=== PATIENT | female | born 1955 | race Caucasian/White ===

== ENCOUNTER → 2018-03-27 | Day surgery (SDC) | payer OTHER ==
[~2018-03-27] MED LIST: ALLOPURINOL300 MG PO; ASPIR 8181 MG PO; BIOTIN5 M1 PO; CALTRATE 600 W1 EACH PO; DEXILANT60 MG PO; EFFEXOR XR150 MG PO; FENTANYL CITRATE/PF 100MCG/2 ML INJ ONE; FETZIMA PO; KRILL OIL PO; LOSARTAN POTASS50 MG PO; MAGNESIUM OXID400 MG PO; MIDAZOLAM HCL 2 MG/2 ML VIAL ONE; PANTOPRAZOLE SO40 MG PO; PROPOFOL IV EMULSION 10 MG/ML 50 ML VIAL ONE; SPRYCEL100 MG PO; SUPER B COMPLEX PO; VITAMIN D250000 UNIT PO; VITAMIN D350000 UNIT PO; Z.0.EFFEXOR XR150 MG PO; Z.0.LEVOXYL125 MCG PO; [UNRECOGNIZED DRUG - OTHER] PO; [UNRECOGNIZED DRUG - OTHER] PO
--- OUTSIDE RECORDS SUMMARY | 2018-03-27 12:50 | XMS REPORT | Clinical Summary ---
Author Author [facility] Organization [facility] Address Unknown Phone Unavailable Care Team Providers Care [facility] [employer] Member Name Role Phone Navneet Flood MD PCP Allergies Not on File Current Medications Not on file Active Problems Not on file Encounters Date Type Specialty Care Team Description 05/18/2017 [facility]iology Mitchell Hodge MD Neoplasm of uncertain Encounter behavior of breast, unspecified laterality 05/18/2017 [facility] Mitchell Hodge MD Neoplasm of uncertain Encounter behavior of breast, unspecified laterality 05/18/2017 [facility] Mitchell Hodge MD Neoplasm of uncertain Orders behavior of breast, unspecified laterality 04/27/2017 [facility] Mitchell Hodge MD Neoplasm of uncertain Orders behavior of breast, unspecified laterality (Primary Dx) after 03/26/2017 Social History Tobacco Use Types Packs/Day Years Used Date Never Assessed Sex Assigned at Date Recorded Not on file Last Filed Vital Signs Not on file Plan of Treatment Health Maintenance Due Date Last Done Comments CERVICAL CANCER SCREENING 1975 COLON CANCER SCREENING 2004 SHINGRIX VACCINE (#1) 2004 ZOSTER VACCINE 2014 INFLUENZA VACCINE 12/28/2017 BREAST CANCER SCREENING 05/18/2019 05/18/2017, 05/18/2017, 05/17/2016, Additional history exists Procedures Procedure Name Priority Date/Time Associated Diagnosis Comments US BREAST COMPLETE Routine 05/18/2017 Neoplasm of uncertain Results for this BILATERAL 12:00 PM [employer] behavior of breast, procedure are in the unspecified laterality results section. MAMMO BREAST DIAGNOSTIC Routine 05/18/2017 Neoplasm of uncertain Results for this TOMOSYNTHESIS BILATERAL 11:00 AM [employer] behavior of breast, procedure are in the unspecified laterality results section. after 03/26/2017 Results * US Breast Complete Bilateral (05/18/2017 12:00 PM) Narrative Performed At PROCEDURE: MAMMO BREAST DIAGNOSTIC TOMOSYNTHESIS BILATERAL, US BREAST COMPLETE HM RADIANT BILATERAL Computer aided detection was utilized for the interpretation of the diagnostic mammography. HISTORY:62-year-old female with no personal history of breast cancer. History of benign biopsy on the left roughly 1996. History of ADH with excision on the left.. COMPARISON: Comparisons from January 2013 through April 2016. DENSITY: There are scattered areas of fibroglandular density. FINDINGS: There is a large dystrophic calcification in the left subareolar region and a few rounded dystrophic type microcalcification seen scattered bilaterally. No suspicious mass or architectural distortion. No abnormal calcification. IMPRESSION:Benign finding RECOMMENDATION: Correlation with physical exam and annual mammography. BI-RADS 2: Benign findings. No adverse changes. This faciility is accredited by the [employer] for Mammography. A negative x-ray report should not delay biopsy if a dominant or clinically suspicious mass is present.Not all cancers are identified by x-ray. [id number] Performing Organization Address [facility] Phone Number [facility] [phone] [place] [address] * Mammo Breast Diagnostic Tomosynthesis Bilateral (05/18/2017 11:00 AM) Narrative Performed At PROCEDURE: MAMMO BREAST DIAGNOSTIC TOMOSYNTHESIS BILATERAL, US BREAST COMPLETE HM RADIANT BILATERAL Computer aided detection was utilized for the interpretation of the diagnostic mammography. HISTORY:62-year-old female with no personal history of breast cancer. History of benign biopsy on the left roughly 1996. History of ADH with excision on the left.. COMPARISON: Comparisons from January 2013 through April 2016. DENSITY: There are scattered areas of fibroglandular density. FINDINGS: There is a large dystrophic calcification in the left subareolar region and a few rounded dystrophic type microcalcification seen scattered bilaterally. No suspicious mass or architectural distortion. No abnormal calcification. IMPRESSION:Benign finding RECOMMENDATION: Correlation with physical exam and annual mammography. BI-RADS 2: Benign findings. No adverse changes. This faciility is accredited by the [employer] for Mammography. A negative x-ray report should not delay biopsy if a dominant or clinically suspicious mass is present.Not all cancers are identified by x-ray. [id number] Performing Organization Address [facility] Services[facility]Eventyard Phone Number [facility] [phone] [place] [address] after 03/26/2017 Insurance Payer Benefit Subscriber ID Type Phone Address Plan / Group AETNA AETNA xxxxxxxxxx HMO HMO,POS,EP O, MC/EC
[2018-03-27 17:15] VITALS: BP 131/75
[2018-03-27 17:24] LABS: WBC,FECAL (FECAL LACTOFERRIN) NEGATIVE (NEGATIVE)
[2018-03-28 12:09] LABS: C DIFFICILE TOXIN A&B AMP PROB NEGATIVE (NEGATIVE)
--- NOTE | 2018-05-16 14:39 | Operative Report ---
DATE OF PROCEDURE: March 27, 2018 REFERRING PHYSICIAN: Dr. Mara Trent. PROCEDURE PERFORMED: Colonoscopy with biopsies. INDICATIONS FOR COLONOSCOPY: Colorectal cancer surveillance. Personal history of colon polyps. MEDICATION: Patient was done under MAC. Please see anesthesiologist's note. PROCEDURE: With patient in the left lateral decubitus position, the flexible fiberoptic Olympus colonoscope was inserted into the rectum with ease and advanced all the way to the cecum. The mucosa overlying the cecum appeared to be within normal limits. The ileocecal valve was intubated, and the scope was advanced into the terminal ileum. Biopsies were obtained. The scope was then withdrawn back into the colon, and there were some mild patchy inflammatory changes noted throughout the colon, and random biopsies were obtained. Some diverticular disease was noted in the sigmoid colon. The rectum also revealed similar inflammatory changes, and biopsies were obtained. The scope was then retroflexed into the distal rectum and small internal hemorrhoids were noted, none of which was actively bleeding. The scope was then straightened out. It was subsequently withdrawn. Patient tolerated procedure well. IMPRESSION: 1. Colitis, mild, patchy. Biopsies obtained. 1. Diverticulosis. 2. Proctitis, mild. 3. Small internal hemorrhoids, none actively bleeding. PLAN: Follow up histology. Follow up stool studies. Initiate VSL#3 one p.o. daily and Bentyl 10 mg 1 p.o. t.i.d. Patient might benefit from a followup colonoscopy in 5 years. Job#: [id number] EV cc:MARA TRENT DO
== END | disposition home or self-care (01) ==
LOC: OR 12:48
PROVIDERS: ATTEND Internal Medicine Gastroenterology
DX: Z12.11 Encounter for screening for malignant neoplasm of colon (principal); K52.9 Noninfective gastroenteritis and colitis, unspecified; K62.89 Other specified diseases of anus and rectum; K64.8 Other hemorrhoids; I10 Essential (primary) hypertension; K21.9 Gastro-esophageal reflux disease without esophagitis; E03.9 Hypothyroidism, unspecified
CPT/HCPCS: 45380; 83630; 83993; 87045; 87177; 87328; 87493; 93005; J2250

== ENCOUNTER → 2021-04-06 | Day surgery (SDC) | payer OTHER ==
[2021-04-03 12:12] LABS: ANION GAP 12.5 mmol/L (8-16); CREATININE, SERUM 1.05 mg/dL (0.57-1.11); POTASSIUM 4.5 mmol/L (3.5-5.1)
[~2021-04-06] MED LIST changes: +BOSULIF100 MG PO; +FAMOTIDINE20 MG PO; -FENTANYL CITRATE/PF 100MCG/2 ML INJ ONE; +LEXAPRO10 MG PO; +LIDOCAINE HCL 2% LOCAL INJ 5 ML SDV VIAL INJ ONE; +PROPOFOL IV EMULSION 10 MG/ML 20 ML VIAL ONE; -PROPOFOL IV EMULSION 10 MG/ML 50 ML VIAL ONE
[2021-04-06 15:30] VITALS: BP 115/67
== END | disposition home or self-care (01) ==
LOC: OR 11:56
PROVIDERS: ATTEND Internal Medicine Gastroenterology
DX: K22.10 Ulcer of esophagus without bleeding (principal); K31.7 Polyp of stomach and duodenum; K29.70 Gastritis, unspecified, without bleeding; K21.9 Gastro-esophageal reflux disease without esophagitis; K44.9 Diaphragmatic hernia without obstruction or gangrene; C95.90 Leukemia, unspecified not having achieved remission; E03.9 Hypothyroidism, unspecified; Z86.010 Personal history of colon polyps; F32.A Depression, unspecified; J90 Pleural effusion, not elsewhere classified; I50.9 Heart failure, unspecified; Z01.810 Encounter for preprocedural cardiovascular examination; Z01.812 Encounter for preprocedural laboratory examination; Z20.822 Contact with and (suspected) exposure to COVID-19; Z79.899 Other long term (current) drug therapy; Z68.28 Body mass index [BMI] 28.0-28.9, adult; Z83.79 Family history of other diseases of the digestive system
CPT/HCPCS: 36415; 43239; 80048; 93005; C9113; J2001; J2250; J2704; U0002

== ENCOUNTER → 2022-03-29 | Outpatient (CLI) | payer MEDICARE, OTHER ==
[~2022-03-29] MED LIST changes: -LIDOCAINE HCL 2% LOCAL INJ 5 ML SDV VIAL INJ ONE; -MIDAZOLAM HCL 2 MG/2 ML VIAL ONE; -PROPOFOL IV EMULSION 10 MG/ML 20 ML VIAL ONE
== END ==
LOC: DX 08:41
PROVIDERS: ATTEND Surgery
DX: K21.9 Gastro-esophageal reflux disease without esophagitis (principal); K44.9 Diaphragmatic hernia without obstruction or gangrene
CPT/HCPCS: 74246